=== PATIENT | female | born 1960 | race Caucasian/White ===

== ENCOUNTER 2018-02-19 05:31 | Emergency (ER) | payer MEDICAID, OTHER ==
[~2018-02-19] VITALS: Ht 162.6 cm; Wt 108.9 kg
[2018-02-19 05:34] VITALS: BP 161/132
[2018-02-19] MEDS ORDERED: EPINEPHrine HCL 1 MG/10 ML SYRG ONE (05:49)
[2018-02-19] MEDS ORDERED: SODIUM BICARBONATE 8.4 % INJ 50ML VIAL IV ONE (05:50)
== END 2018-02-19 10:35 | disposition expired ==
LOC: ER 05:31
DX: I46.9 Cardiac arrest, cause unspecified (principal); G89.29 Other chronic pain; M54.9 Dorsalgia, unspecified
CPT/HCPCS: 92950; 99285; J0171